=== PATIENT | male | born 1950 | race Caucasian/White ===

== ENCOUNTER 2024-04-04 15:26 | Emergency (ER) | payer MEDICARE, OTHER ==
[~2024-04-04] VITALS: Ht 177.8 cm; Wt 73.2 kg
[2024-04-04] MEDS ORDERED: ALBUTEROL/IPRATROPIUM 3 ML NEB INH PRN (15:45)
[2024-04-04 15:50] LABS: BASOPHILS 0.7 % (0-2); EOSINOPHILS 2.1 % (0-6); HEMATOCRIT 42.7 % (35.0-50.0); HEMOGLOBIN 14.5 g/dL (12.0-18.0); LYMPHOCYTES 9.3 % (24-44); MCH 31.4 (27-36); MCHC 33.9 g/dl (30-36); MCV 92.5 fl (81-99); NEUTROPHILS 79.9 % (39-80); PLATELET COUNT 337 K/uL (140-440); RBC 4.62 M/ul (4.3-5.7); RDW 14.6 (10.5-15.0)
[2024-04-04] MEDS ORDERED: methylPREDNISolone SOD SUCC 125 MG/2 ML VIAL IV ONE (16:00)
[2024-04-04] MEDS ORDERED: ALBUTEROL/IPRATROPIUM 3 ML NEB INH ONE (16:00)
[2024-04-04] MEDS ORDERED: LYRICA300 MG PO (16:06)
[2024-04-04] MEDS ORDERED: OXYCODONE HCL5 MG PO (16:07)
[2024-04-04] MEDS ORDERED: LIPITOR10 MG (16:07)
[2024-04-04] MEDS ORDERED: ADVIL MIGRAINE200 MG PO (16:07)
[2024-04-04 16:13] LABS: ALBUMIN 3.4 g/dL (3.4-5.0); ALBUMIN/GLOBULIN RATIO 0.71 (1.1-2.4); ANION GAP 19.1 (7-21); BILIRUBIN, TOTAL 0.4 ng/dL (0.2-1.0); BUN/CREATININE RATIO 12.94 (6.0-28.6); CALCIUM 9.5 mg/dL (8.5-10.1); CREATININE, SERUM 0.85 mg/dL (0.70-1.30); MAGNESIUM 2.2 mg/dL (1.8-2.4); POTASSIUM 4.1 mmol/L (3.5-5.1); PROTEIN, TOTAL 8.2 g/dL (6.4-8.2)
[2024-04-04 16:26] LABS: INFLUENZA B NAA NEGATIVE (NEGATIVE); RESPIRATORY SYNCYTIAL VIR NAA NEGATIVE (NEGATIVE)
[2024-04-04] MEDS ORDERED: ZITHROMAX250 MG PO (17:08)
[2024-04-04] MEDS ORDERED: CEFDINIR300 MG PO (17:08)
[2024-04-04] MEDS ORDERED: PREDNISONE20 MG PO (17:08)
[2024-04-04 17:12] VITALS: BP 160/102
[2024-04-04] MEDS ORDERED: CEFDINIR 300 MG CAP PO ONE (17:15)
[2024-04-04] MEDS ORDERED: AZITHROMYCIN 250 MG TAB PO ONE (17:15)
--- NOTE | 2024-04-06 14:04 | EKG ---
[facility] [address] [facility] [place] [address] Signed Sinus tachycardia Rightward axis Inferior infarct , age undetermined Abnormal ECG No previous ECGs available Confirmed by Geeta Manzanares MD ([id number]) on 04/06/2024 2:03:55 PM Electronically Signed By: GEETA MANZANARES DO 04/06/24 1404 PATIENT NAME: MAGALI BURGOS Electrocardiogram DATE OF : 54 PHYSICIAN: GEETA MANZANARES DO REPORT #: [id number] REPORT IS CONFIDENTIAL AND NOT TO BE RELEASED WITHOUT AUTHORIZATION
== END 2024-04-04 17:18 | disposition home or self-care (01) ==
LOC: ED 15:26
PROVIDERS: Emergency Medicine
DX: J44.1 Chronic obstructive pulmonary disease with (acute) exacerbation (principal); J44.0 Chronic obstructive pulmonary disease with (acute) lower respiratory infection; J18.9 Pneumonia, unspecified organism; Z79.899 Other long term (current) drug therapy
CPT/HCPCS: 36415; 71045; 80053; 83735; 84484; 85025; 87502; 93005; 93010; 94640; 96374; 99285-25; J2919; U0002

== ENCOUNTER 2024-07-27 15:47 | Emergency (ER) | payer MEDICARE, OTHER ==
[~2024-07-27] VITALS: Ht 177.8 cm; Wt 76.6 kg
[~2024-07-27 15:47] MED LIST: ADVIL MIGRAINE200 MG PO; CEFDINIR300 MG PO; LIPITOR10 MG; LYRICA300 MG PO; OXYCODONE HCL5 MG PO; PREDNISONE20 MG PO; ZITHROMAX250 MG PO
[2024-07-27] MEDS ORDERED: CYCLOBENZAPRINE10 MG PO (20:27)
[2024-07-27] MEDS ORDERED: VENTOLIN HFA18 GM INH (20:27)
[2024-07-27] MEDS ORDERED: TRELEGY ELLIPT1 EACH IH (20:28)
[2024-07-27] MEDS ORDERED: ALBUTEROL/IPRATROPIUM 3 ML NEB INH ONE (20:45)
[2024-07-27] MEDS ORDERED: methylPREDNISolone SOD SUCC 125 MG/2 ML VIAL IV ONE (20:45)
[2024-07-27 21:05] LABS: BASOPHILS 0.7 % (0-2); EOSINOPHILS 3.1 % (0-6); HEMATOCRIT 41.6 % (35.0-50.0); HEMOGLOBIN 14.2 g/dL (12.0-18.0); MCH 30.8 (27-36); MCHC 34.3 g/dl (30-36); MCV 89.9 fl (81-99); MONOCYTES 10.4 % (0-12); NEUTROPHILS 59.8 % (39-80); PLATELET COUNT 178 K/uL (140-440); RBC 4.62 M/ul (4.3-5.7); RDW 14.8 (10.5-15.0)
[2024-07-27 21:29] LABS: BILIRUBIN, URINE NEGATIVE (negative); BLOOD/HGB, URINE NEGATIVE (Negative); KETONE, URINE NEGATIVE (Negative); LEUK ESTERASE, URINE NEGATIVE (negative); NITRITE, URINE NEGATIVE (negative)
[2024-07-27 21:30] LABS: ALBUMIN 3.9 g/dL (3.4-5.0); ALBUMIN/GLOBULIN RATIO 1.26 (1.1-2.4); ANION GAP 8.2 (7-21); BILIRUBIN, TOTAL 0.2 mg/dL (0.2-1.0); BUN/CREATININE RATIO 21.42 (6.0-28.6); CREATININE, SERUM 0.7 mg/dL (0.70-1.30); POTASSIUM 4.2 mmol/L (3.5-5.1)
[2024-07-27 21:45] LABS: AMPHETAMINES, URINE NEGATIVE (NEGATIVE); BARBITURATES, URINE NEGATIVE (NEGATIVE); BENZODIAZEPINE, URINE NEGATIVE (NEGATIVE); BUPRENORPHINE, URINE NEGATIVE (NEGATIVE); CANNABINOID, URINE POSITIVE (NEGATIVE); COCAINE, URINE NEGATIVE (NEGATIVE); ECSTASY, URINE NEGATIVE (NEGATIVE); FENTANYL, URINE NEGATIVE (NEGATIVE); METHADONE, URINE NEGATIVE (NEGATIVE); OPIATES, URINE POSITIVE (NEGATIVE); OXYCODONE, URINE POSITIVE (NEGATIVE); PHENCYCLIDINE, URINE NEGATIVE (NEGATIVE)
[2024-07-27 21:59] LABS: CORONAVIRUS COVID-19 AG NEGATIVE (NEGATIVE); INFLUENZA A AG NEGATIVE (NEGATIVE); INFLUENZA B AG NEGATIVE (NEGATIVE)
[2024-07-27] MEDS ORDERED: PREDNISONE20 MG PO (21:59)
[2024-07-27 22:10] VITALS: BP 182/94
--- NOTE | 2024-07-28 14:01 | EKG ---
[facility] [address] [facility] [place] [address] Signed Normal sinus rhythm Inferior infarct (cited on or before 04-APR-2024) Abnormal ECG When compared with ECG of 04-APR-2024 15:43, Vent. rate has decreased BY [address] no longer elevated in Inferior leads Confirmed by Xiao Zarco MD () on 07/28/2024 2:01:05 PM Electronically Signed By: XIAO ZARCO MD 07/28/24 1401 PATIENT NAME: MAGALI BURGOS Electrocardiogram DATE OF : 54 PHYSICIAN: XIAO ZARCO MD REPORT #: [id number] REPORT IS CONFIDENTIAL AND NOT TO BE RELEASED WITHOUT AUTHORIZATION
== END 2024-07-27 22:10 | disposition home or self-care (01) ==
LOC: ED 15:47
PROVIDERS: Internal Medicine
DX: J44.1 Chronic obstructive pulmonary disease with (acute) exacerbation (principal); J43.9 Emphysema, unspecified; F17.200 Nicotine dependence, unspecified, uncomplicated; Z79.51 Long term (current) use of inhaled steroids; Z79.899 Other long term (current) drug therapy
CPT/HCPCS: 36415; 71045; 80053; 80307; 81003; 83880; 84484; 85025; 93005; 93010; 94640; 96374; 99285-25; J2919

== ENCOUNTER 2024-10-18 14:17 | Emergency (ER) | payer MEDICARE, OTHER ==
[~2024-10-18] VITALS: Ht 177.8 cm; Wt 74.5 kg
[~2024-10-18 14:17] MED LIST changes: +CYCLOBENZAPRINE10 MG PO; +TRELEGY ELLIPT1 EACH IH; +VENTOLIN HFA18 GM INH
[2024-10-18] MEDS ORDERED: ALBUTEROL/IPRATROPIUM 3 ML NEB ONE (14:28)
[2024-10-18] MEDS ORDERED: ALBUTEROL/IPRATROPIUM 3 ML NEB INH PRN (14:30)
[2024-10-18 15:11] LABS: BASOPHILS 0.7 % (0.2-1.2); EOSINOPHILS 4.1 % (0.8-7.0); LYMPHOCYTES 27.9 % (21.8-53.1); MCH 30.9 PG (25.7-32.2); MCHC 34.2 g/dL (32.3-36.5); MCV 90.3 fL (79.0-92.2); MONOCYTES 11.5 % (5.3-12.2); NEUTROPHILS 55.6 % (34.0-67.9); RBC 3.92 M/uL (4.63-6.08)
[2024-10-18] MEDS ORDERED: PREGABALIN200 MG PO (15:13)
[2024-10-18] MEDS ORDERED: OXYCODONE-ACET1 EAC3 PO (15:13)
[2024-10-18] MEDS ORDERED: DIAZEPAM5 MG PO (15:14)
[2024-10-18 15:29] LABS: ALT (SGPT) 20.0 U/L (14-59); AST (SGOT) 16.0 U/L (15-37); GLOMERULAR FILTRATION RATE,EST 92.0 mL/min (>60); PROTEIN, TOTAL 6.6 g/dL (6.4-8.2); UREA NITROGEN 12.0 mg/dL (7-18)
[2024-10-18] MEDS ORDERED: PREDNISONE20 MG PO (15:45)
[2024-10-18 16:10] VITALS: BP 152/78
--- NOTE | 2024-10-21 07:53 | EKG ---
[facility] [address] [facility] [place] [address] Signed Sinus rhythm with premature atrial complexes Rightward axis Inferior infarct (cited on or before 04-APR-2024) Abnormal ECG When compared with ECG of 27-JUL-2024 20:48, premature atrial complexes are now present Vent. rate has increased BY 32 BPM Confirmed by Preethi Avila MD ([id number]) on 10/21/2024 7:53:04 AM Electronically Signed By: PREETHI AVILA MD 10/21/24 0753 PATIENT NAME: MAGALI BURGOS Electrocardiogram DATE OF : 54 PHYSICIAN: PREETHI AVILA MD REPORT #: [id number] REPORT IS CONFIDENTIAL AND NOT TO BE RELEASED WITHOUT AUTHORIZATION
== END 2024-10-18 16:10 | disposition home or self-care (01) ==
LOC: ED 14:17
PROVIDERS: Emergency Medicine
DX: J44.1 Chronic obstructive pulmonary disease with (acute) exacerbation (principal); J43.9 Emphysema, unspecified; T67.8XXA Other effects of heat and light, initial encounter; Z79.51 Long term (current) use of inhaled steroids; Z79.52 Long term (current) use of systemic steroids; X30.XXXA Exposure to excessive natural heat, initial encounter
CPT/HCPCS: 36415; 71045; 80053; 83735; 84484; 85025; 93005; 93010; 94640; 96374; 99285-25; 99406; J2919